=== PATIENT | female | born 1995 | race Caucasian/White ===

== ENCOUNTER → 2020-08-23 13:14 | Outpatient (CLI) | payer OTHER, SELFPAY ==
[2020-08-24 13:17] LABS: Strep Grp B PCR NEG for Grp B Strep
== END ==
PROVIDERS: PCP Obstetrics & Gynecology; Visit Provider Specialist
DX: Z34.03 Encounter for supervision of normal first pregnancy, third trimester (principal); Z3A.37 37 weeks gestation of pregnancy
CPT/HCPCS: 87653

== ENCOUNTER 2020-09-09 11:53 | Inpatient (IN) | payer OTHER, SELFPAY ==
[2020-09-09 13:42] LABS: Add Manual Diff / Slide Review NO; Basophils Absolute Auto 100 /uL (0-100); Basophils Percent Auto 0.5 % (0-2); Eosinophils Absolute Auto 100 /uL (0-450); Eosinophils Percent Auto 0.6 % (2-4); Hematocrit 35.7 % (36-46); Hemoglobin 12.1 g/dL (12.0-16.0); Lymphocytes Absolute Auto 1900 /uL (1100-4500); Lymphocytes Percent Auto 10.3 % (25-40); Mean Corpuscular Hemoglobin 30.6 PG (26-34); Mean Corpuscular Volume 90.1 fL (80-100); Monocytes Absolute Auto 900 /uL (0-900); Monocytes Percent Auto 4.7 % (3-14); Neutrophils Absolute Auto 15800 /uL (1500-7000); Neutrophils Percent Auto 83.9 % (50-75); Platelet Count 160 X10^3/uL (150-400); Red Blood Cell Count 3.96 X10^6/uL (4.0-5.2); Red Cell Distribution Width 13.5 % (11.6-14.8); White Blood Cell Count 18.9 X10^3/uL (4.5-11.0)
[2020-09-09 13:50] VITALS: BP 132/74
[2020-09-09 14:48] LABS: COVID19 -Nasal RAPID Negative (Negative)
--- NOTE | 2020-09-09 15:27 | P.HPOB_ITS ---
OB HPI Date/Time Date of admission: 09/09/20 Date Patient Seen: 09/09/20 Time Patient Seen: 13:20 History of Present Condition Chief complaint: NST : 1 Para: 0 Estimated Date of Delivery: 09/12/20 Estimated Gestational Age (weeks): 39+ 4 Narrative: Iram Quesada is a 25 year old female 1 para 0 at 39- ,4/7 weeks gestation who presented in active labor. Patient reports some leaking of fluid starting last evening. She developed painful contractions overnight and presented this morning in active labor. Her 1st vaginal exam showed a bulging bag. History of Present care: good care, initiated at week # (9), number of visits (13) and pounds weight gain (52) Dating criteria: LMP confirmed by 1st trimester US Ultrasounds: normal 1st trimester US and normal mid trimester US Obstetrical complications: none Medical complications: none Preadmission Labs Blood type: A (+) positive -: Antibody screen: negative, GBS status: negative, HBsAG: negative, HIV: negative and RPR/VDLR: negative -: Chlamydia screen: not detected and Gonorrhea screen: not detected -: Rubella: immune and Varicella: immune HCT: 35.7 HCAB: negative PAP: Normal Quad screen: Normal Urine: Negative 1 hr GTT: 107 Evaluation Evaluation Baseline heart rate: 130 Variability: Moderate (11-25) monitor accelerations: Present monitor decelerations: Absent Contraction Frequency (minutes): 3 Uterine Contraction Intensity: Strong/Firm Status: Category l Cervical dilation (cm): 10 Cervical effacement (%): 100 station: 0 Laboratory results: Laboratory Tests 09/09/20 09/09/20 09/09/20 13:20 13:20 13:20 WBC 18.9 H RBC 3.96 L Hgb 12.1 Hct 35.7 L MCV 90.1 MCH 30.6 MCHC 34.0 RDW 13.5 Plt Count 160 Neut % (Auto) 83.9 H Lymph % (Auto) 10.3 L [place] % (Auto) 4.7 Eos % (Auto) 0.6 L Baso % (Auto) 0.5 Neut # (Auto) 10244 H Lymph # (Auto) 1900 [place] # (Auto) 900 Eos # (Auto) 100 Baso # (Auto) 100 SARS-CoV-2 (PCR) Negative Blood Type A Positive Antibody Screen Negative PFSH Medical History (Updated 06/11/20 @ 16:00 by Mitra Vu RN) Anemia (~05/2020) H/O trauma Headache Hives (~02/2020) Kidney infection Lactose intolerance Migraine Ovarian cyst UTI (urinary tract infection) Surgical History (Updated 06/11/20 @ 15:31 by Mitra Vu RN) H/O wisdom tooth extraction (~2017) Family History (Updated 06/11/20 @ 15:34 by Mitra Vu RN) Mother Hyperthyroidism Father Diabetes mellitus Grandmother No problems noted. Grandfather Hypertension Diabetes mellitus Grandmother No problems noted. Grandfather Cancer Lung cancer Family/Other Breast cancer Cancer Sister No problems noted. Brother Migraine Family/Other Liver transplanted Social History marital status: household members: spouse lives independently: Yes pets and animals: Yes (a cat : aware ) education level: college (some [employer] - switched ) occupational status: employed (Childcare) current occupational exposures/hazards: Yes special kelly needs: No Smoking Status: Never smoker Smokeless tobacco user: dissolvable tobacco (Quit 01/29/2020) second hand exposure: No alcohol intake: former (pre- : ) substance use type: does not use Type(s) of exercise: running Meds Home Medications and Allergies Home Medications Medication Instructions Recorded Confirmed Type prenat.vits,jose,tvl-[id number] 1 tab PO DAILY 06/11/20 09/09/20 History ferrous sulfate 325 mg (65 mg 325 mg PO DAILY 07/03/20 09/09/20 History iron) tablet omeprazole 40 mg capsule,delayed See Rx Instructions .ROUTE 08/19/20 09/09/20 Rx release .COMPLEX #30 cap Allergies Allergy/AdvReac Type Severity Reaction Status Date / Time amoxicillin Allergy Intermediate Rash; Hives Verified 09/04/20 15:21 cefuroxime [From Ceftin] Allergy Intermediate Rash; Hives Verified 09/04/20 15:21 Exam Vital Signs (past 8 hours): - 09/09/20 13:50 Blood Pressure 132/74 Narrative Exam Narrative: Generally: Patient walking around in room, in moderate distress secondary to contractions Fundal height: 39 cm Estimated weight: 7 lb Extremities: Trace edema, 1+ DTRs Objective Labs Result Diagrams: 09/09/20 13:20 Labs: Laboratory Results - last 24 hr 09/09/20 09/09/20 09/09/20 13:20 13:20 13:20 WBC 18.9 H RBC 3.96 L Hgb 12.1 Hct 35.7 L MCV 90.1 MCH 30.6 MCHC 34.0 RDW 13.5 Plt Count 160 Neut % (Auto) 83.9 H Lymph % (Auto) 10.3 L [place] % (Auto) 4.7 Eos % (Auto) 0.6 L Baso % (Auto) 0.5 Neut # (Auto) 86307 H Lymph # (Auto) 1900 [place] # (Auto) 900 Eos # (Auto) 100 Baso # (Auto) 100 SARS-CoV-2 (PCR) Negative Blood Type A Positive Antibody Screen Negative Assessment and Plan Assessment and Plan Assessment and Plan narrative: Assessment: 25-year-old 1 para 0 at 39-,4/7 weeks gestation in active labor Plan: Expected management to spontaneous vaginal delivery Epidural as necessary Time Spent with Patient Total time spent with greater than 50% in coordination of care (as documented) at patient's floor/unit and/or counseling patient:: 15-24 minutes
[2020-09-09] MEDS: OXYTOCIN 10 UNIT/ML VIAL IM (16:03)
--- NOTE | 2020-09-09 17:33 | PM.OBPRVD ---
Labor & Delivery Delivery date: 09/09/20 Intrapartal Events: Precipitous Labor < 3 hours Cervical ripening method: none Induction method: none Delivery monitor: external FHT and external uterine Route of delivery: Episiotomy description: None L&D Laceration Description: None Estimated blood loss (mL): 150 Anesthesia Type: Other (Nitrous oxide) Complications: None Baby 1: gender: Female Presentation: vertex Position: Right Occiput Anterior Placenta delivery description: Spontaneous Cord Vessel Description: 3 Vessels and Clamped/Cut score (1 min): 9 score (5 min): 9 Narrative: Patient complete and pushed for 31 minutes. At 3:54 p.m., a live female delivered spontaneously in the [facility] presentation over an intact perineum. The remainder of the body delivered without difficulty and was placed on mom's abdomen. After the cord stopped pulsing, the cord was double clamped and cut. Cord bloods were obtained. 10 units of Pitocin was given IM. The placenta delivered intact with a three-vessel cord at 4:03 p.m.. The fundus was massaged to firm. The perineum and vagina were inspected and there were no lacerations noted. Apgars 9 at 1 minute and 9 at 5 minutes. . Nitrous oxide. Mom and infant stable to recovery. Estimated blood loss 150 cc. Plan for aftercare: Routine care
[2020-09-09] MEDS: IBUPROFEN 600 MG TABLET PO (19:40)
[2020-09-10] MEDS: IBUPROFEN 600 MG TABLET PO (01:42)
[2020-09-10] MEDS: LANOLIN OINT 7 GM 1 APPLIC TOP (01:42)
[2020-09-10] MEDS: ACETAMINOPHEN 325 MG TABLET 650 MG PO (01:42)
[2020-09-10 06:26] LABS: Hematocrit 28.4 % (36-46); Hemoglobin 9.5 g/dL (12.0-16.0)
--- NOTE | 2020-09-10 10:43 | P.DS_ITS ---
Discharge Providers Provider Date of admission: 09/09/20 11:53 Discharge Date: 09/10/20 Primary care physician: Yu Lagunas MD Consults: 09/09/20 13:31 Consult to Anesthesiology Urgent Comment: Consulting Provider: Anesthesiologist Reason for consultation: epidural 09/10/20 16:10 Consult to Sintering Press Operator Routine Comment: Discharge provider: Gabbie Merida MD Summary Hospital Course Date Patient Seen: 09/10/20 Time Patient Seen: 08:30 Diagnoses: 39-4/7 weeks gestation Precipitous labor Spontaneous vaginal delivery Hospital Course: Patient is a 25-year-old 1 para 1 who presented in active labor on September 09, 2020. She was 4 cm on admission. She progressed quickly to complete dilation and had a spontaneous vaginal delivery without complication. She had no lacerations. Her course was unremarkable. is going well. Her bleeding is tapering. Peripartum Data Infant Delivery Method: Natural Vaginal Laceration Description: None Episiotomy description: None Procedures: Spontaneous vaginal delivery complications: none [place] 1: Gender: Female Disposition of : home Status at Discharge Cognitive/behavioral status at discharge: oriented Functional status at discharge: independent ambulation Overall status at discharge: patient is progressing back to baseline Time Spent with Patient Time attestation: Total time spent providing and/or coordinating discharge services: Time spent: Less than 30 minutes Objective Labs Result Diagrams: 09/10/20 06:05 Labs: Laboratory Results - last 24 hr 09/09/20 09/09/20 09/09/20 13:20 13:20 13:20 WBC 18.9 H RBC 3.96 L Hgb 12.1 Hct 35.7 L MCV 90.1 MCH 30.6 MCHC 34.0 RDW 13.5 Plt Count 160 Neut % (Auto) 83.9 H Lymph % (Auto) 10.3 L [place] % (Auto) 4.7 Eos % (Auto) 0.6 L Baso % (Auto) 0.5 Neut # (Auto) 64165 H Lymph # (Auto) 1900 [place] # (Auto) 900 Eos # (Auto) 100 Baso # (Auto) 100 SARS-CoV-2 (PCR) Negative Blood Type A Positive Antibody Screen Negative 09/10/20 06:05 WBC RBC Hgb 9.5 L Hct 28.4 L MCV MCH MCHC RDW Plt Count Neut % (Auto) Lymph % (Auto) [place] % (Auto) Eos % (Auto) Baso % (Auto) Neut # (Auto) Lymph # (Auto) [place] # (Auto) Eos # (Auto) Baso # (Auto) SARS-CoV-2 (PCR) Blood Type Antibody Screen Exam Vital Signs (past 8 hours): Generally: Patient is sitting up in bed, nursing , no acute distress Fundus: Firm at U -1 Extremities: Negative Hom[place], no edema Discharge Plan Discharge Plan Patient Disposition: Home Provider Discharge Comment: Call with fever, chills, or bleeding vaginally more than a pad in an hour Ibuprofen 600 mg every 6 hours as needed for cramping Discharge orders & Medications Prescriptions: Continued ferrous sulfate [Feosol] 325 mg (65 mg iron) tablet 325 mg PO DAILY RF: 0 prenat.vits,jose,[id number] Tablet 1 tab PO DAILY RF: 0 Discontinued omeprazole 40 mg capsule,delayed release(DR/EC) See Rx Instructions .ROUTE .COMPLEX Qty: 30 RF: 3 Follow up/Referrals: Danna Wallace MD [Physician] - 1 Month ( visit) Diet/Activity/Treatments Diet: Regular Activity: No intercourse Skin/Wound/Dressing Care Report to your healthcare provider any signs of infection, such as:: chills, fever, increased pain and unusual drainage Visit Report/Discharge Packet Instructions: DI for Labor and Delivery, Vaginal Discharge Data Primary Care Provider: Yu Lagunas
[2020-09-10 11:20] VITALS: BP 120/60; PULSE 84; RESP 17; TEMP 37
[2020-09-10 14:46] VITALS: BP 120/60; PULSE 84; RESP 17; TEMP 37
== END 2020-09-10 18:20 | disposition home or self-care (01) | DRG 807 ==
PROVIDERS: Obstetrics & Gynecology; Admitting Provider Specialist; PCP Obstetrics & Gynecology; Referring Provider Specialist; Visit Provider Specialist
DX: O62.3 Precipitate labor (principal); Z37.0 Single live birth; Z3A.39 39 weeks gestation of pregnancy; O99.03 Anemia complicating the puerperium; D64.9 Anemia, unspecified; Z20.822 Contact with and (suspected) exposure to COVID-19
CPT/HCPCS: 36415; 59400; 59409; 59410; 84112; 85014; 85018; 85025; 86850; 86900; 86901; 87635; C9803; G0379; J2590